=== PATIENT | male | born 1965 | race Caucasian/White ===

== ENCOUNTER 2018-11-21 18:20 | Emergency (ER) | payer SELFPAY ==
[~2018-11-21] VITALS: Ht 170.2 cm; Wt 67.8 kg
[~2018-11-21 18:20] MED LIST: denies meds/allergies
[2018-11-21 18:47] VITALS: Ht 170.2 cm; Wt 67.8 kg
[2018-11-21] MEDS ORDERED: IBUP-1542 PO (19:10)
--- NOTE | 2018-11-21 19:13 | ERD ---
ER Documentation Chief Complaint Chief Complaint pain left lower leg while playing soccer yesterday HPI This 52-year-old male presents with pain in his left calf after playing soccer and sustaining an awkward movement. He has no restricted range of motion or weakness or redness. There is no history of trauma or impact. No history of shortness of breath, syncope, hemoptysis. ROS All systems reviewed and are negative except as per history of present illness. Medications Home Meds Active Scripts Ibuprofen* (Motrin*) 600 Mg Tab, 600 MG PO Q6, #20 TAB Prov:FREDDY DE LA TORRE MD 11/21/18 Reported Medications [denies meds/allergies] No Conflict Check 09/07/12 Allergies Allergies: Coded Allergies: No Known Allergy (Unverified , 10/09/12) PMhx/Soc Medical and Surgical Hx: pt denies Medical Hx, pt denies Surgical Hx Hx Alcohol Use: No Hx Substance Use: No Hx Tobacco Use: No FmHx Family History: No diabetes, No coronary disease, No other Physical Exam Vitals Vital Signs Date Temp Pulse Resp B/P (MAP) Pulse Ox O2 O2 Flow FiO2 Time Delivery Rate 11/21/18 98.5 65 18 129/68 100 18:47 (88) Physical Exam Const: No acute distress Head: Atraumatic Eyes: Normal Conjunctiva ENT: Normal External Ears, Nose and Mouth. Neck: Full range of motion. No meningismus. Resp: Clear to auscultation bilaterally Cardio: Regular rate and rhythm, no murmurs Abd: Soft, non tender, non distended. Normal bowel sounds Skin: No petechiae or rashes Back: No midline or flank tenderness Ext: No cyanosis, or edema. Tenderness of the left calf without swelling, restricted range of motion weakness or deficits. No palpable defects, warmth, erythema. Neur: Awake and alert Psych: Normal Mood and Affect Procedures/MDM Patient with signs and symptoms of the left calf strain. Doubt DVT given mechanism and clinical exam. Patient has no evidence of complete tear or deficits or ischemia or compartment syndrome. Is no signs of infection. Jorge wrap was applied to the left calf area. Patient will be treated with recommenda tions for stretching, rest, ibuprofen, primary care follow-up and return precautions for redness, shortness of breath, swelling, weakness, new worsening symptoms otherwise with primary care doctor. The patient was stable with no new complaints during the ER course. Clinically, there is no current evidence to suggest meningitis, sepsis, acute abdomen, pneumonia, stroke, acute coronary syndrome, pulmonary embolism, aortic dissection or any other emergent condition appearing to require further evaluation or hospitalization. Patient counseled regarding my diagnostic impression and care plan. Prior to discharge all questions answered. Pt agrees with treatment plan and understands strict return precautions. Pt is instructed to follow up with primary care provider within 24- 48 hours. Precautionary instructions provided including instructions to return to the ER if not improving or for any worsening or changing symptoms or concerns. Departure Diagnosis: Primary Impression: Muscle strain Condition: Stable Patient Instructions: Muscle Strain, Extremity Additional Instructions: Likely muscle strain should improve over the next 1 to 2 weeks. Recommend stretching. Recheck for worsening swelling, redness, fevers, shortness of breath, new or worsening symptoms. FREDDY DE LA TORRE MD Nov 21, 2018 19:13
[2018-11-21 19:33] VITALS: BP 126/78; PULSE 57; RESP 18
== END 2018-11-21 19:33 | disposition home or self-care (01) ==
LOC: FTE 18:20
DX: S86.912A Strain of unspecified muscle(s) and tendon(s) at lower leg level, left leg, initial encounter (principal); X58.XXXA Exposure to other specified factors, initial encounter; Y92.322 Soccer field as the place of occurrence of the external cause
CPT/HCPCS: 99282